=== PATIENT | female | born 1990 | race Caucasian/White ===

== ENCOUNTER 2019-10-10 05:26 | Day surgery (SDC) | payer OTHER ==
[2019-10-02 16:21] VITALS: BMI 26.6
[2019-10-10] MEDS ORDERED: THROMBIN (BOVINE) 5,000 UNIT VIAL TP ONE ×3 (10:44→12:40)
--- NOTE | 2019-10-10 10:49 | PN ---
Progress Note (short form) - Note Progress Note: NEUROSURGERY Pre-op in holding Plans d/w pt and /mother For L L4-5 laminectomy/microdisectomy and possible L L5-S1 decompression Pros and cons, risks and benefits discussed Post-op care discussed All questions answered
[2019-10-10] MEDS ORDERED: ONDANSETRON 4 MG/2 ML VIAL IVPUSH PRN ×3 (10:51→14:30)
[2019-10-10] MEDS ORDERED: LACTATED RINGERS SOLUTION 1,000 ML IV SCH ×2 (11:00→14:30)
[2019-10-10] MEDS ORDERED: BUPIVACAINE HCL/PF 0.5% (5MG/ML) 10 ML VIAL IJ ONE ×3 (11:15→13:35)
[2019-10-10] MEDS ORDERED: ROCURONIUM BROMIDE 50 MG/5 ML SYRINGE ONE (11:21)
[2019-10-10] MEDS ORDERED: PROPOFOL 20 ML ONE (11:21)
[2019-10-10] MEDS ORDERED: MIDAZOLAM HCL 2 MG/2 ML SINGLE DOSE VIAL ONE ×2 (11:21)
[2019-10-10] MEDS ORDERED: fentaNYL CITRATE 250 MCG/5 ML VIAL ONE (11:36)
[2019-10-10] MEDS ORDERED: ceFAZolin SODIUM 1 GM VIAL IVPB ONE (11:50)
[2019-10-10] MEDS ORDERED: ceFAZolin SODIUM 1 GM VIAL ONE ×2 (11:54→18:47)
[2019-10-10] MEDS ORDERED: BACITRACIN 50,000 UNITS VIAL TP ONE (12:35)
[2019-10-10] MEDS ORDERED: oxyCODONE HCL 5 MG TABLET PO PRN (14:03)
--- NOTE | 2019-10-10 14:03 | OP ---
Operative Note - Note: Operative Date: 10/10/19 Pre-Operative Diagnosis: L L4-5 HNP with thecal sac and root compression; L4-5 and L5-S1 stenosis Operation: Partial L L4, L5, S1 laminectomies, medial facetectomies, foramenotomies, L L4-5 microdiscectomy; microdissecetion Findings: Large fibrotic disc herniation with thecal sac and root compression; epidural fibrosis; sensitive L L5 root Post-Operative Diagnosis: Same as Pre-op Surgeon: Pranav Gerard Clinical Education Consultant: Nikhil Jimenez II Anesthesiologist/ICE MAKER: Yesenia Carvalho MD Anesthesia: General Specimens Removed: L L4-5 HNP Estimated Blood Loss (mls): 25 Operative Report Dictated: Yes
[2019-10-10] MEDS ORDERED: D5-1/2NS+20 MEQ KCL - 20 MEQ/1,000 ML INFUS.BAG IV SCH (14:15)
--- NOTE | 2019-10-10 14:33 | PN ---
Progress Note (short form) - Note Progress Note: NEUROSURGERY In PACU Incisional pain No sciatica AF, VSS; O2 sat 100% S/P L L4-5 laminectomy/microdisectomy and L L5-S1 decompression PE: Still slightly sleepy; CV- RR; Lungs- CTA; Abd- benign; Ext- no sign of DVT CN- intact; Motor- L DF 4/5 otherwise 4+/5; Sensation- intact LT Dressing intact Pain meds prn Valium for muscle relaxation Intraop findings d/w family (mother and )
--- NOTE | 2019-10-10 14:38 | SURG ---
Surgery Filter Tank Tender Note Filter Tank Tender: SHANKAR Thornton Date of Service: 10/10/19 Diagnosis: L L4-5 HNP with thecal sac and root compression; L4-5 and L5-S1 stenosis Procedure: Partial L L4, L5, S1 laminectomies, medial facetectomies, foramenotomies, L L4- 5 microdiscectomy; microdissecetion I was present for the entirety of the operative procedure. For further detail, please refer to operative report. Visit type - Case Type Case Type: Scheduled - Emergency Emergency Visit: No - New patient This patient is new to me today: Yes Date on this admission: 10/10/19
[2019-10-10] MEDS: diazePAM 5 MG TABLET PO SCH ×2 (17:47→21:15)
[2019-10-10] MEDS ORDERED: DEXTROSE 5%-WATER - 50 ML IVPB ONE (18:47)
[2019-10-10] MEDS: CEFAZOLIN 1 GM in DEXTROSE 5%-WATER - 50 ML IVPB SCH (19:03)
[2019-10-10] MEDS: ACETAMINOPHEN 325 MG TABLET (FP) PO PRN (20:56)
[2019-10-10] MEDS: DOCUSATE SODIUM 100 MG CAPSULE (FP) PO SCH (21:15)
[2019-10-11] MEDS ORDERED: ceFAZolin SODIUM 1 GM VIAL ONE (00:32)
[2019-10-11] MEDS ORDERED: DEXTROSE 5%-WATER - 50 ML IVPB ONE (00:33)
[2019-10-11] MEDS: CEFAZOLIN 1 GM in DEXTROSE 5%-WATER - 50 ML IVPB SCH (01:18)
[2019-10-11] MEDS: DOCUSATE SODIUM 100 MG CAPSULE (FP) PO SCH ×2 (05:39→13:51)
[2019-10-11] MEDS: diazePAM 5 MG TABLET PO SCH ×2 (05:39→13:51)
[2019-10-11] MEDS: ACETAMINOPHEN 325 MG TABLET (FP) PO PRN ×2 (09:22→13:37)
[2019-10-11 12:42] VITALS: BP 112/57; PULSE 75; TEMP 99
--- NOTE | 2019-10-11 13:31 | PN ---
Progress Note (short form) - Note Progress Note: Anesthesia postop note 29 y/o F s/p GA for lumbar laminectomy POD#1, vss, aaox3, no complaints. No anesthesia complications.
--- NOTE | 2019-10-11 14:04 | PN ---
Progress Note (short form) - Note Progress Note: NEUROSURGERY POD #1 Incisional pain Minimal sciatica Walking with cane Tmax 99, AF, VSS S/P L L4-5 laminectomy/microdisectomy and L L5-S1 decompression PE: Still slightly sleepy; CV- RR; Lungs- CTA; Abd- benign; Ext- no sign of DVT CN- intact; Motor- L EHL 4+/5 otherwise 5/5; Sensation- intact LT Dressing intact- changed Pain meds prn Valium for muscle relaxation Intraop findings d/w pt Activity instructions given
--- NOTE | 2019-10-11 17:31 | OP ---
DATE OF OPERATION: 10/10/2019 PREOPERATIVE DIAGNOSES: 1. Left L4-5 paracentral disk protrusion with thecal sac and left L5 greater than L4 nerve root impingement. 2. L5-S1 lateral recess and foraminal stenosis. POSTOPERATIVE DIAGNOSES: 1. Left L4-5 paracentral disk protrusion with thecal sac and left L5 greater than L4 nerve root impingement. 2. L5-S1 lateral recess and foraminal stenosis. ATTENDING SURGEON: Pranav Meneses MD PROCEDURE: 1. Partial right L4 and L5 laminectomies including neofacetectomy and foraminotomy with concurrent microdiskectomy for cord decompression and thecal sac and left L4 and L5 nerve roots (04913, [id number]). 2. Partial right S1 laminectomy for decompression of right L5 nerve roots and neural foramen (98302). 3. Microsurgical dissection with the operative microscope and microsurgical techniques (59992). ANESTHESIA: General endotracheal. ANESTHESIOLOGIST: ARNOLD Hansen ESTIMATED BLOOD LOSS: 25 mL. ATTENDING SURGEON: Pranav Meneses MD. ENGINE LATHE SET UP OPERATOR TOOL: Nikhil Jimenez II, PA FINDINGS: 1. Dense epidural fibrosis and dural venous congestion. 2. Densely adherent disk protrusion to the left anterior thecal sac and the left L5 nerve root with significant nerve root and thecal sac compression. 3. Sensitive left L4 nerve root which was edematous. INDICATIONS: Patient is a 29-year-old female with history of lower back pain and left lower extremity radiculopathy. She has failed conservative treatment, and an MRI demonstrated left L4-5 paracentral disk protrusion as well as L5-S1 degenerative disk disease with foraminal stenosis. Because of intractable symptoms and failure of conservative treatment with associated neurological deficits, she was consented for left L4-5 and L5-S1 decompression. The risks of the procedure included, but were not limited to, bleeding, infection, dural tear with CSF leak, neurological injury including thromboembolic risks and other risks of general anesthesia. The patient understood the indications for the procedure, procedure in detail, risks and benefits, and alternative treatments of her lumbar condition and wished to proceed with the procedure. No guarantees were given for a favorable outcome. PROCEDURE IN DETAIL: The patient was taken to the operating room. She was placed in supine position. After general anesthesia was induced and appropriate monitoring lines were placed, she was turned in prone position on a Rickey frame. All pressure points were checked and padded. Lumbar region cleaned with alcohol and prepped with Betadine. Localization obtained with spinal needle placed at L4-5 level. Approximately 2-1/2-inch incision was opened in midline. Subperiosteal dissection was carried out with periosteal elevator and monopolar electrocautery. The lamina of L4, L5, and partially of S1 was dissected free with a combination of periosteal elevator, monopolar electrocautery. A self-retaining retractor system was inserted. At this point, a localization film was obtained, demonstrating exposure to be L4 -5 laminar level. At this point, electrical stimulation of the lamina at L4, L5 as well as S1 demonstrated irritability of the nerve roots. Partial laminectomy on the left side at L4 and L5 was carried out with angled curette, high-speed pneumatic drill, and Kerrison rongeur. Underlying ligamentum flavum was isolated free with angled curette and resected with Kerrison rongeur. This portion of the procedure was performed with the use of the operative microscope with both illumination and magnification. Microsurgical techniques were utilized. After the ligamentum flavum was resected with Kerrison rongeur, an attempt was made to mobilize the left L5 nerve root. It was under significant epidural fibrosis, and hemostasis was obtained with bipolar electrocautery and the scar tissue was lysed with microscissors. The left L5 nerve root was not able to be mobilized. At this point, a small annulotomy was made with a number-15 blade and disk material removed with the pituitary rongeurs, both straight and up-going. Downgoing curettes as well as upgoing pituitary rongeur were used to remove disk fragments medial to the left L5 nerve root. Extremely fibrotic disk material was encountered. Further removal of the disk material was carried out. This portion of the procedure was performed meticulously to avoid injury to the dura. Epidural hemostasis was obtained with bipolar electrocautery. Attention then turned to the L5-S1 interspace, where a partial inferior L5 and superior S1 laminectomy was carried out including medial facetectomy to gain access to the lateral recess and proximal L5-S1 neural foramen. This was done with a combination of angled curette, Kerrison rongeur, and high-speed pneumatic drill. The dural sac was pulsating nicely with CSF pulsation now that decompression was completed. A Valsalva maneuver was also performed which showed no CSF leak. A dental tool was used to check the patency of the spinal canal, lateral recesses , and neural foramen at L4-5 and L5-S1. At this point, 10 mL of 0.25% Marcaine were injected in the paraspinal muscles on the left side only. The wound was irrigated with copious amount of antibiotic-containing irrigation. A layer of Surgicel was laid in the epidural space at L4-5 and L5-S1. Paraspinal hemostasis was obtained using bipolar electrocautery. Dorsolumbar fascia was then closed with 0 Vicryl suture. Subcutaneous fascia was closed with 3-0 Vicryl sutures. Skin was closed with 4-0 Vicryl running subcuticular suture. Steri-Strips and sterile occlusive dressing were applied. The patient tolerated the procedure well and was turned back to supine position and extubated. OR timeout procedure was followed. The patient received 1 dose of 2 g Ancef prior to the incision. The family was updated as to the patient's postoperative condition as well as the intraoperative findings. PRANAV MENESES M.D. [id number] MTDD
--- NOTE | 2019-10-12 16:50 | PATH ---
Surgical Pathology Report Patient Name: EMERY HUDDLESTON [facility]. Rec. #: [id number] /Age/Gender: 1990 (Age: 29) / F Account: [id number] Location: AMBULATORY SURG Taken: 10/10/2019 Received: 10/11/2019 Reported: 10/12/2019 Physicians: Pranav Gerard M.D. 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 Electronically Signed Modesta Shultz M.D. Gross Description Received in formalin labeled "left L4-L5 disc," is a 4.0 x 3.0 x 0.4 cm aggregate of herrera fragments of fibrocartilaginous tissue. A member service representative portion is submitted in one cassette. DL/10/11/2019 saudi10/11/2019
== END 2019-10-11 15:01 | disposition home or self-care (01) ==
LOC: JASUSAT 05:26 → J8W 17:42 → JASUSAT 10-11 15:01
PROVIDERS: ATTEND Neurological Surgery
PROC: 01NB0ZZ Release Lumbar Nerve, Open Approach (ICD-10-PCS; principal; 2019-10-10 12:11)
DX: M51.26 Other intervertebral disc displacement, lumbar region (principal); M54.16 Radiculopathy, lumbar region; M48.061 Spinal stenosis, lumbar region without neurogenic claudication
CPT/HCPCS: 72100-TC-FY; 84703; 86850; 86900; 86901; 86922; 88304-TC; 94010; 94760; 97116-GP; 97161-GP